=== PATIENT | male | born 1945 | race Caucasian/White ===

== ENCOUNTER 2021-04-08 10:07 | Emergency (ER) | payer OTHER, MEDICARE, SELFPAY ==
[2021-04-08 10:26] VITALS: BP 195/89; PULSE 60; RESP 17; TEMP 36.3; O2SAT 100; BMI 23.7
--- NOTE | 2021-04-08 11:06 | W.ED.BACK ---
HPI - Back Pain/Injury General: Chief Complaint: Back Pain/Injury Stated Complaint: back pain so bad cant walk Time Seen by Provider: 04/08/21 10:34 History of Present Illness: Sciatica down left leg. Patient states he was moving household goods other day and his back flared up. Patient has a history of chronic low back pain has been seen by specialist was told he might need surgery someday. Has done physical therapy. Has been seen at [facility] x2 and received couple steroid injections MD elicited complaint: back pain and other (Sciatica) Pertinent past history: prior back pain Similar Symptoms Previously: Yes Associated symptoms: Reports nausea and vomiting; Deny abdominal pain, chills or fever(s) Review of Systems Narrative: Pain started after he was moving furniture boxes at his house. [facility] has been seen a couple walk-in clinics x2. Const: Denies: fever(s), chills or body aches Eyes: Denies: eye discomfort ENMT: Denies: throat pain Card: Reports: dyspnea on exertion; Denies: chest pain Resp: Denies: dyspnea GI: Reports: nausea and vomiting; Denies: abdominal pain Musc: Reports: back pain (Pain rating down left hip down to the left calf), limited range of motion and other (Patient says bowels are working fine has no numbness anywhere.) Skin/Breast: Denies: rash Neuro: Denies: headache(s) Psych: Denies: depression or suicidal ideation Physical Exam Const: COMMON NORMALS: no acute distress, patient oriented x3 and alert HENMT: COMMON NORMALS: normocephalic HEAD & SCALP: normocephalic Eye: COMMON NORMALS: EOMs intact bilaterally Neck/C-Spine: COMMON NORMALS: no JVD Resp: COMMON NORMALS: normal respiratory effort and No use of accessory muscles Cardio: COMMON NORMALS: no JVD GI: INSPECTION: Yes normal to inspection Back/Pelvis: LUMBAR SPINE/LOWER BACK: Yes lumbar ROM normal, Yes paraspinal muscle tenderness and Yes other soft tissue findings (Pain to the buttock down the left side, hurts down the calf.) Other lumbar soft tissue findings laterality: left OTHER: No saddle anesthesia noted. Extremity: COMMON NORMALS: normal to inspection and full ROM Neuro: COMMON NORMALS: patient oriented x3 SENSORIUM/ORIENTATION: Yes alert Psych: COMMON NORMALS: mental status grossly normal Skin: COMMON NORMALS: no rashes or lesions noted GENERAL SKIN EXAM: no rashes or lesions noted Course Vital Signs: Vital signs: Vital Signs Temperature 97.3 F L 04/08/21 10:26 Pulse Rate 60 04/08/21 10:26 Respiratory Rate 17 04/08/21 10:26 Blood Pressure 195/89 04/08/21 10:26 Pulse Oximetry 100 04/08/21 10:26 MDM - Back Pain/Injury Medical Decision Making Acute on chronic low back pain and sciatica. Patient encouraged take medications as directed. Encourage place ice low back, not do any heavy lifting next few weeks follow-up [facility]. Discharge Plan Discharge Patient Disposition: Home Clinical Impression: Lumbar radiculopathy Condition: Stable Prescriptions: New hydrocodone-acetaminophen 5-325 mg tablet 1 tab PO TID PRN (Reason: pain) Qty: 14 0RF Celebrex 100 mg capsule 200 mg PO BID Qty: 20 0RF cyclobenzaprine 5 mg tablet 5 mg PO TID PRN (Reason: muscle spasm) Qty: 10 0RF Discharge Orders: Discharge ED (Routine); Ordered 04/08/21 Ordered By: Tenzin Arceo Discharge Diet: Usual diet Discharge Activity: Increase activity as tolerated Patient Instructions: Sciatica (ED) Activity Restrictions/Additional Instructions: Follow-up with medical provider as directed. Take medications as prescribed. Return to the ER or your medical provider if condition worsens. Please read and understand discharge instructions. If any questions ask please. No lifting over 10 pounds for next 3 to 4 weeks. [facility]. Coding Level of Care Code ED Truck Hop for Theo Loyd
== END 2021-04-08 11:07 | disposition home or self-care (01) ==
LOC: ER 11:15
PROVIDERS: Emergency Provider Nurse Practitioner Family
DX: M54.16 Radiculopathy, lumbar region (principal)
CPT/HCPCS: 99281

== ENCOUNTER 2022-01-29 10:50 | Outpatient (CLI) | payer OTHER, SELFPAY ==
--- NOTE | 2022-01-29 11:02 | FL_ITS ---
WS: [id number] ESOPHAGRAM TECHNIQUE: Double contrast examination was performed with thin and thick barium. Upright and SOTO imag es were obtained. CLINICAL INFORMATION: OTHER DYSPHAGIA/DIVERTICULUM OF ESOPHAGUS COMPARISON: None. FINDINGS: No prior comparisons. Small posterior projecting Zenkers diverticulum measuring 6.8 mm at the C6 level. This retains contra st on some images. Swallowing: Normal oropharyngeal phase. No aspiration or penetration. Esophagus: Mild esophageal dysmotility. No obstructing stricture or mass. Tiny esophageal hiatal manisha ia. Gastroesophageal reflux: Reflux in the supine position to the upper thoracic esophagus. Evidence of e sophagitis in the mid and distal esophagus. Fluoroscopy time: 4min [id number] # of spot films: 15 FL/FL barium swallow [id number] IMPRESSION: 1. 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 This demonstr ates contrast retention on some images. 2. Moderate esophageal dysmotility with delayed emptying. 3. Marked esophageal reflux in the supine position to the thoracic inlet. Evid ence of reflux esophagitis. 4. Tiny esophageal hiatal hernia.
== END 2022-01-29 10:51 | disposition home or self-care (01) ==
LOC: RAD 10:53
PROVIDERS: Visit Provider Specialist
DX: K22.5 Diverticulum of esophagus, acquired (principal); K21.9 Gastro-esophageal reflux disease without esophagitis; K44.9 Diaphragmatic hernia without obstruction or gangrene; R13.19 Other dysphagia
CPT/HCPCS: 74220

== ENCOUNTER 2022-04-27 13:53 | Outpatient (CLI) | payer OTHER, SELFPAY ==
--- NOTE | 2022-04-27 14:09 | CT_ITS ---
WS: [id number] CT NECK TECHNIQUE: Contrast-enhanced CT of the neck with coronal and sagittal reformatted images. CLINICAL INFORMATION: DIVERTICULUM OF ESOPHAGUS,OTHER DYSPHAGIA COMPARISON: Barium swallow January 29, 2022 DLP: 357.[address] scans at [facility] use at least one of these dose optimization techniques: automated e xposure control; mA and/or kV adjustment per patient size (includes targeted exams where dose is matc hed to clinical indication); or iterative reconstruction. FINDINGS: Zenker's diverticulum seen on the recent barium swallow not well visualized on this study. Mastoid ai r cells are well aerated. Paranasal sinuses are well aerated. Tiny retention cyst RIGHT maxillary sin us measuring 6 mm. Normal posterior nasopharynx. Normal parapharyngeal fat. Parotid glands are normal . Normal submandibular glands. No evidence of supraglottic or glottic mass. Normal glottis. Normal potter bglottic airway. No cervical lymphadenopathy. Tiny RIGHT thyroid nodule measuring 3 mm. Hazy atelectasis in the lung a pices. Partially visualized enlarged lymph nodes at the thoracic inlet, anterior mediastinum, and per ibronchial lymph nodes. Recommend further evaluation with chest CT. No comparisons. CT/CT neck w con* [id number] IMPRESSION: 1. Zenker's diverticulum seen on the recent barium swallow not well visualized on this study. 2. No evidence of supraglottic or glottic mass. 3. No cervical lymphadenopathy. 4.Enlarged lymph nodes at the thoracic inlet, anterior mediastinum, and peribro nchial lymph nodes partially visualized. Recommend further evaluation with ches t CT. No comparisons. 5. Paranasal sinuses and mastoid air cells well aerated. Normal posterior nasop harynx.
[2022-04-27 14:53] LABS: Blood Urea Nitrogen 20 mg/dL (8-23)
[2022-04-27] MEDS: iohexol 350 mg/mL 500 mL Btl (per mL) IV (14:54)
== END 2022-04-27 13:54 | disposition home or self-care (01) ==
LOC: RAD 13:57
PROVIDERS: Visit Provider Specialist
DX: R13.19 Other dysphagia (principal)
CPT/HCPCS: 70491; 82565; 84520; Q9967

== ENCOUNTER 2022-08-14 07:21 | Day surgery (SDC) | payer OTHER, SELFPAY ==
--- NOTE | 2022-08-13 11:57 | PC.NURSE ---
PT STATES HE DOES NOT HAVE ANYONE TO DRIVE HIM HOME UPON DISCHARGE. HE WAS ADAMANT THAT HE WOULD BE ABLE TO DRIVE HIMSELF HOME THE NEXT DAY. I CALLED DR JENKINS'S OFFICE AND THEY SAID HE WOULD NOT BE ABLE TO DRIVE HIMSELF POD 1. I INFORMED THE PATIENT OF THIS AND HE IS QUITE FRUSTRATED. I CALLED [employer] [employer] TO INFORM HER OF THIS SITUATION. SHE SAID THAT SHE WOULD CONTACT THE PATIENT TO MAKE ARRANGEMENTS.
[2022-08-14] VITALS (11 sets, daily range): BP systolic 146–164; BP diastolic 87–102; PULSE 59–91; RESP 16–19; TEMP 36.2–36.6; O2SAT 94–98
[2022-08-14] MEDS: sodium chloride 0.9% 1,000 ML 30 ML IV (08:21)
--- NOTE | 2022-08-14 08:35 | ANES.PREANE2 ---
Pre-Anesthetic Assessment Height/Weight: Height 1.91 m Weight 87.09 kg Temp Pulse Resp BP Pulse Ox O2 Del Method 97.3 F L 70 16 164/99 97 Room Air 08/14/22 07:50 08/14/22 07:50 08/14/22 07:50 08/14/22 07:50 08/14/22 07:50 08/14/22 07:53 Operation Date: 08/14/22 08:50 Proposed Procedures p Direct Laryngoscopy Direct Microdirect Larynoscopy(Not Applicable) - Jon Pak MD s Esophagoscopy(Not Applicable) - Jon Pak MD s DL/Micro DL, Esophagoscopy, Possible Zenker's Diverticulectomy , 88399, 35265, 96881, K22.5, R13.19(Not Applicable) - Jon Pak MD Familial anesthetic complications: None Was Beta Kandy taken within 24 hours: N/A Was Clonidine taken within 24 hours: N/A Last intake: Intake Last Liquid Date 08/14/22 Last Liquid Time 06:00 Last Solid Date 08/13/22 Last Solid Time 20:00 Social No alcohol and No tobacco Exam alert, oriented x 3, clear to auscultation bilaterally and regular rate & rhythm Airway Mallampati: Class II Dentition: full Comments: Comments: Possible zenker's diverticulum per office note, patient states he can tell when he has food in his throat and says he's Good right now Consider RSI CV/HEM Atrial Fibrillation hx CHF episodes years ago when first diagosed with lupus, had KAIA at the time as well Metabolic Thyroid Disease Anesthetic Plan ASA status: 3 Anesthesia: General Risk of > 500 ml blood loss (7ml/kg in children): No Medications/Allergies Home Medications Medication Instructions Recorded Confirmed Last Taken Type PreserVision AREDS 1 tab PO DAILY 05/21/22 08/13/22 08/12/22 History cholecalciferol (vitamin D3) 50 50 mcg PO DAILY 05/21/22 08/13/22 08/12/22 History mcg (2,000 unit) tablet (Vitamin D3) levothyroxine 25 mcg tablet 25 mcg PO DAILY 05/21/22 08/13/22 08/12/22 History rivaroxaban 20 mg tablet (Xarelto) 20 mg PO DAILY 05/21/22 08/13/2223 History tamsulosin 0.4 mg capsule 0.4 mg PO DAILY 05/21/22 08/13/22 08/12/22 History Allergies Allergy/AdvReac Type Severity Reaction Status Date / Time hydrocodone Allergy ALGY-Rash Verified 08/13/22 11:25 niacin Allergy Unknown Verified 08/13/22 11:25 pentazocine [From Pepe] Allergy Unknown Verified 08/13/22 11:25 Current Medications Generic Name Dose Route Start Last Admin Trade Name Freq PRN Reason Stop Dose Admin Sodium Chloride 1,000 mls @ 30 mls/hr 08/14/22 08:00 08/14/22 08:21 Sodium Chloride 0.9% IV 08/15/22 07:59 30 mls/hr .Q24H HOPE Administration Data Anesthesia Cardiac Studies: No Data to Display
--- NOTE | 2022-08-14 08:38 | W.PM.OPSUD ---
Surgery/Procedure H&P Update DATE OF PROCEDURE: August 14, 2022 DATE H&P PERFORMED: 07/27/22 PRIMARY INDICATION FOR PROCEDURE: - Dysphagia - Zenker's diverticulum PLANNED PROCEDURE: Operation Date: 08/14/22 08:50 Proposed Procedures p Direct Laryngoscopy Direct Microdirect Larynoscopy(Not Applicable) - Jon Pak MD s Esophagoscopy(Not Applicable) - Jon Pak MD s DL/Micro DL, Esophagoscopy, Possible Zenker's Diverticulectomy , 20764, 07088, 14271, K22.5, R13.19(Not Applicable) - Jon Pak MD
[2022-08-14] MEDS: clindamycin 900 MG/50 ML PREMIX 100 MG IV (08:42)
--- NOTE | 2022-08-14 09:49 | P.OP_ITS ---
Operative Report Date of procedure: August 14, 2022 Pre-op diagnosis: - Dysphagia - Small Zenker's diverticulum Post-op diagnosis: - No surgically amenable Zenker's diverticulum - Normal larynx, oralpharynx, and hypopharynx - Fungal esophagitis - O/W normal esophagus to the cardia of the stomach Post-op findings: See the above Procedure done: - Direct laryngoscopy - Rigid and flexible esophagoscopy with biopsies Implants: None Specimens removed/disposition: Mid esophageal biopsies Pathology: Mid esophageal biopsy Surgeon: Jon Pak Senior [employer] Coordinator: [place] Anesthesia: General Estimated blood loss (mL): 1 IV fluids (mL): 600 Complications: None Findings: - Normal larynx - Fungal esophagitis - No surgically amenable Zenker's diverticulum Condition: stable Disposition: PACU Brief History: 76 yo wm with a h/o dysphagia and a small Zenker's diverticulum who desires surgical evaluation/treatment. Procedure: The patient was identified in the preop holding area and was taken to the operating room where he was placed on the operating table in the supine position. Anesthesia was obtained with general endotracheal anesthesia and the table was then turned 120 degrees the patient's left. The patient was then prep ped and draped in the usual sterile fashion. A surgical laryngoscope was advanced down the right oral cavity gutter under direct vision until the larynx came into view. An inspection was then carried out of the patient's larynx with the findings as noted above. At this point the short esophagoscope and the Zenker's diverticuloscope were used to inspect the proximal esophagus. There was no surgically amenable Zenker's diverticulum found. At this point the esophagoscope/diverticuloscopes were removed, and the flexible esophagoscope was passed into the esophageal inlet under direct vision. The esophagus was inspected in its entirety to the cardia of the stomach. Biopsies were taken at the midesophagus. Once this was accomplished, the esophagoscope was removed and the procedure was terminated. Control of the patient was returned to anesthesia where she underwent an uneventful reversal of anesthesia and extubation and was taken to the recovery room in stable condition. There were no operative or anesthetic complications.
--- NOTE | 2022-08-14 10:21 | SUR.PHASEI ---
pt no longer needs to be admitted due to surgery not being as extensive as dr. quesada anticipated. pt reports he has a sister that can pick him up, nurse tried calling sister multiple times and continue to get a busy signal. pt reports she's home, just on the phone . pt also states he doesn't have anyone to stay with him overnight that he lives alone. pt now tells me it will have to work, she will just have to stay with me this information passed to OPS nurse.
--- NOTE | 2022-08-14 15:51 | ANE.PACU2 ---
Inpatient post-anesthesia follow up: Airway intact: Yes Vital signs: Temperature 97.8 F Pulse Rate 59 Respiratory Rate 16 Blood Pressure 154/96 Pulse Oximetry 96 Oxygen Delivery Me thod Room Air Oxygen Flow Rate Fraction of Inspir ed Oxygen Hydration adequate: Yes Nausea and vomiting: Yes Pain level: 1 Mental status: Baseline
== END 2022-08-14 11:40 | disposition home or self-care (01) ==
PROVIDERS: Visit Provider Specialist
PROC: 0CJS8ZZ Inspection of Larynx, Via Natural or Artificial Opening Endoscopic (ICD-10-PCS; CPT 31525; principal; 2022-08-14 08:40)
PROC: 0DJ08ZZ Inspection of Upper Intestinal Tract, Via Natural or Artificial Opening Endoscopic (ICD-10-PCS; CPT 31525; 2022-08-14 08:40)
PROC: 0D9 Gastrointestinal System, Drainage (ICD-10-PCS; CPT 43180; 2022-08-14 08:40)
DX: K22.5 Diverticulum of esophagus, acquired (principal); R13.19 Other dysphagia; I48.91 Unspecified atrial fibrillation; E03.9 Hypothyroidism, unspecified; K20.80 Other esophagitis without bleeding
CPT/HCPCS: 31525; 43202; 12345; 88305; J0330; J1100; J2405; J2704; J2710; J3010; J3490; J7030